=== PATIENT | female | born 1960 | race Caucasian/White ===

== ENCOUNTER 2017-05-10 17:56 | Observation (INO) | payer MEDICAID ==
[~2017-05-10] VITALS: Ht 170.2 cm; Wt 57.0 kg
[~2017-05-10 17:56] MED LIST: BUPR100CR PO; CLON1TAB PO; DICY1TAB26 PO; EFFE75CA PO; FLUT1SPR9 EACH NARE; GABA300C3 PO; LOMO PO; PRED20 PO; QUET50TA PO; VENTAER INH; ZITH250T PO
[2017-05-10 18:07] VITALS: BP 143/64; PULSE 78; RESP 28; TEMP 97.3; O2SAT 98
[2017-05-10 18:10] VITALS: BP 143/64; PULSE 84; RESP 29; O2SAT 98
--- NOTE | 2017-05-10 18:17 | PD ---
Physical Exam Date Seen by Provider: May 10, 2017 Narrative This patient presents with diffuse body movement following an apparent seizure which occurred an hour ago. On exam, the patient is awake and alert but moving her hands constantly. Data Data Last Documented VS Vital Signs Date Time Temp Pulse Resp B/P (MAP) Pulse Ox O2 Delivery O2 Flow Rate FiO2 05/10/17 18:10 84 29 143/64 (90) 98 Room Air 05/10/17 18:07 97.3 MDM Supervised Visit with ZORAIDA: Yes Narrative Course I, Dr. Castelan, have reviewed the advance practice practitioner's documentation and am in agreement, met with the patient face to face, made the diagnosis, and the medical decision making was done by me. *My assessment and Findings: Patient is being seen for possible new onset seizure. She has diffuse, continuous movement of her arms and legs. Please see Talia Kebede's note for final diagnosis and disposition. Lashell Castelan MD May 10, 2017 18:17
--- NOTE | 2017-05-10 18:21 | PD ---
HPI Chief Complaint: Neuro Symptoms/ Deficits Time Seen by Provider: 18:07 Travel History International Travel<30 days: No Contact w/Intl Traveler<30days: No Traveled to known affect area: No History of Present Illness HPI 56-year-old white female here with who gives most of the history. Pt was able to tell me that she and her were having a right before the seizure started. He says that she had a grand mal seizure that lasted about 3 minutes and did not fall or have a postictal period. After the seizure states that she was unable to move her face, had slurred speech, and upper extremities were moving continuously. He denies a history of alcohol abuse and only drinks one alcoholic drink per week. She does smoke about a pack per day. There are no prior episodes and states that she has diabetes but no other medical history. He cannot tell me which medication she takes for diabetes. PFSH Past Medical History Diminished Hearing: No Psychiatric: Yes ?: Not LMP: MENOPAUSAL Menopausal: Yes Tubal Ligation: Yes Social History Alcohol Use: No Tobacco Use: Yes (1 PACK DAY) Substance Use: No Allergies-Medications (Allergen,Severity, Reaction): Coded Allergies: nitrofurantoin (Verified Allergy, Mild, SWELLS, 05/10/17) buspirone (Verified Allergy, Unknown, 05/10/17) codeine (Verified Adverse Reaction, Mild, VOMIT, 05/10/17) Reported Meds & Prescriptions Reported Meds & Active Scripts Active Active Prescriptions or Reported Medications Unobtainable Review of Systems Except as stated in HPI: all other systems reviewed are Neg Physical Exam Exam Limitations: Clinical Condition Narrative 36-year-old thin white female here with who gives most of the history GENERAL: Thin, A&O 3, stutters with speech, rhythmic bilateral hand motions that increases with intentional movement, lower extremities demonstrate bilateral rhythmic motion with intentional movement. SKIN: Focused skin assessment warm/dry. HEAD: Atraumatic. Normocephalic. EYES: Pupils equal and round. No scleral icterus. No injection or drainage. ENT: No nasal bleeding or discharge. Mucous membranes pink and moist. NECK: Trachea midline. No JVD. CARDIOVASCULAR: Regular rate and rhythm. No murmur appreciated. RESPIRATORY: No accessory muscle use. Clear to auscultation. Breath sounds equal bilaterally. GASTROINTESTINAL: Abdomen soft, non-tender, nondistended. Hepatic and splenic margins not palpable. MUSCULOSKELETAL: No obvious deformities. No clubbing. No cyanosis. No edema. NEUROLOGICAL: Awake and alert. No obvious cranial nerve deficits. Speech is stuttered. Data Data Last Documented VS Vital Signs Date Time Temp Pulse Resp B/P (MAP) Pulse Ox O2 Delivery O2 Flow Rate FiO2 05/10/17 19:19 64 17 Room Air 05/10/17 18:35 128/60 (82) 94 05/10/17 18:[address] Brain W/O Iv Contrast(Rout) (05/10/17 18:20) Complete Blood Count With Diff (05/10/17 18:21) Alcohol (Ethanol) (05/10/17 18:21) Drug Screen, Random Urine (05/10/17 18:21) Electrocardiogram (05/10/17 ) Blood Glucose (05/10/17 18:21) Ecg Monitoring (05/10/17 18:21) Iv Access Insert/Monitor (05/10/17 18:21) Oximetry (05/10/17 18:21) Comprehensive Metabolic Panel (05/10/17 18:21) Sodium Chloride 0.9% Flush (Ns Flush) (05/10/17 18:30) Lorazepam Inj (Ativan Inj) (05/10/17 18:30) Urinalysis - C+S If Indicated (05/10/17 18:21) Consult Neurology (05/10/17 ) Admit Order (Ed Use Only) (05/10/17 20:46) Labs Laboratory Tests Test 05/10/17 18:30 White Blood Count 6.7 TH/MM3 Red Blood Count 4.52 MIL/MM3 Hemoglobin 13.7 GM/DL Hematocrit 40.4 % Mean Corpuscular Volume 89.4 FL Mean Corpuscular Hemoglobin 30.4 PG Mean Corpuscular Hemoglobin Concent 34.0 % Red Cell Distribution Width 12.9 % Platelet Count 198 TH/MM3 Mean Platelet Volume 8.2 FL Neutrophils (%) (Auto) 60.9 % Lymphocytes (%) (Auto) 28.2 % Monocytes (%) (Auto) 7.9 % Eosinophils (%) (Auto) 2.1 % Basophils (%) (Auto) 0.9 % Neutrophils # (Auto) 4.1 TH/MM3 Lymphocytes # (Auto) 1.9 TH/MM3 Monocytes # (Auto) 0.5 TH/MM3 Eosinophils # (Auto) 0.1 TH/MM3 Basophils # (Auto) 0.1 TH/MM3 CBC Comment DIFF FINAL Differential Comment Urine Color LIGHT-YELLOW Urine Turbidity CLEAR Urine pH 6.5 Urine Specific [place] 1.008 Urine Protein NEG mg/dL Urine Glucose (UA) NEG mg/dL Urine Ketones NEG mg/dL Urine Occult Blood NEG Urine Nitrite NEG Urine Bilirubin NEG Urine Urobilinogen LESS THAN 2.0 MG/DL Urine Leukocyte Esterase NEG Urine RBC 1 /hpf Urine WBC LESS THAN 1 /hpf Urine Squamous Epithelial Cells 1 /hpf Urine Bacteria RARE /hpf Microscopic Urinalysis Comment CULT NOT INDICATED Blood Urea Nitrogen 12 MG/DL Creatinine 0.94 MG/DL Random Glucose 107 MG/DL Total Protein 7.7 GM/DL Albumin 4.0 GM/DL Calcium Level 9.1 MG/DL Alkaline Phosphatase 80 U/L Aspartate Amino Transf (AST/SGOT) 15 U/L Alanine Aminotransferase (ALT/SGPT) 12 U/L Total Bilirubin 0.2 MG/DL Sodium Level 138 MEQ/L Potassium Level 3.9 MEQ/L Chloride Level 106 MEQ/L Carbon Dioxide Level 26.0 MEQ/L Anion Gap 6 MEQ/L Estimat Glomerular Filtration Rate 62 ML/MIN Urine Opiates Screen NEG Urine Barbiturates Screen NEG Urine Amphetamines Screen NEG Urine Benzodiazepines Screen NEG Urine Cocaine Screen NEG Urine Cannabinoids Screen NEG Ethyl Alcohol Level LESS THAN 3 MG/DL MDM Medical Decision Making Medical Screen Exam Complete: Yes Emergency Medical Condition: Yes Differential Diagnosis Idiopathic seizure versus pseudoseizure versus hypoglycemia versus CVA Narrative Course 56-year-old white female here with who gives most of the history. He says that she had a grand mal seizure that lasted about 3 minutes and did not fall or have a postictal period. Pt was able to tell me that she and her were having a verbal fight right before the seizure. After the seizure states that she was unable to move her face and had slurred speech. Upper extremities had a continuous rhythmic movement, worse with intentional movement. He did not notice a one-sided drooping of the face or one-sided weakness. She denies a history of alcohol abuse or illicit drug use and only drinks one alcoholic drink per week. She does smoke about a pack per day. There are no prior episodes and states that she has diabetes but no other medical history. He cannot tell me which medication she takes for diabetes. She apparently improved spontaneously and the tremors stopped. She was able to sit up and talk normally prior to discharge. After reevaluating the patient, she states that she did not bite her tongue, although her dentition is rather poor, nor involuntarily urinate. She does not remember having the seizure. She denies being able to hear or see anything during the seizure. She states that she has more stress in her life because of family issues and thinks maybe that is the cause. Labs are stable and UDS was negative. CT Head and EKG negative for acute process. I spoke with Dr. Hicks and she suggested an overnight observation and consult with neurology. I discussed this with the patient and she understood and agreed. It is imperative that she not drive until cleared by a neurologist. Physician Communication Physician Communication Dr. Hicks suggested pt be admitted for observation and neuro consult tomorrow. Diagnosis Primary Impression: Observed seizure-like activity Admitting Information Admitting Physician Requests: Observation Additional Instructions: Follow-up with your primary care physician within 2 days. Follow-up with neurologist Do not drive until cleared by neurology. Scripts Unable to Obtain Active Prescriptions or Reported Meds Condition: Stable Talia Kebede May 10, 2017 18:21
[2017-05-10] MEDS ORDERED: SODIUM CHLORIDE 0.9% FLUSH 10 ML FLUSH IVF PRN (18:30)
[2017-05-10] MEDS ORDERED: LORazepam 2 MG/ML VIAL IM ONE (18:30)
[2017-05-10 18:35] VITALS: BP 128/60; PULSE 68; PULSE 72; RESP 15; RESP 16; TEMP 97.3; O2SAT 94; O2SAT 98
--- NOTE | 2017-05-10 18:35 | RADRPT ---
EXAM DATE/TIME: 05/10/2017 18:22 [facility] COMPARISON: Report only CT BRAIN W/O CONTRAST, June 29, 2010, 12:00. INDICATIONS : Post seizure with slurred talking. RADIATION DOSE: 30.96 CTDIvol (mGy) MEDICAL HISTORY : Seizures. SURGICAL HISTORY : Tubal ligation. ENCOUNTER: Initial ACUITY: 1 day PAIN SCALE: 3/10 LOCATION: Bilateral cranial TECHNIQUE: Multiple contiguous axial images were obtained of the head. Using automated exposure control and adj ustment of the mA and/or kV according to patient size, radiation dose was kept as low as reasonably a chievable to obtain optimal diagnostic quality images. DICOM format image data is available electro nically for review and comparison. FINDINGS: CEREBRUM: The ventricles are normal for age. No evidence of midline shift, mass lesion, hemorrhage or acute in farction. No extra-axial fluid collections are seen. POSTERIOR FOSSA: The cerebellum and brainstem are intact. The 4th ventricle is midline. The cerebellopontine angle i s unremarkable. EXTRACRANIAL: The visualized portion of the orbits is intact. SKULL: The calvaria is intact. No evidence of skull fracture. CONCLUSION: Negative noncontrast head CT. Barron Lopez MD on May 10, 2017 at 18:33 Board Certified Radiologist. This report was verified electronically.
[2017-05-10 18:50] LABS: AUTOMATED NEUTROPHIL # 4.1 TH/MM3 (1.8-7.7); BASOPHIL # 0.1 TH/MM3 (0-0.2); BASOPHIL % 0.9 % (0.0-2.0); EOSINOPHIL # 0.1 TH/MM3 (0-0.4); EOSINOPHIL % 2.1 % (0.0-4.0); HEMATOCRIT 40.4 % (35.0-46.0); HEMO FLAGS DIFF FINAL; LYMPH % 28.2 % (9.0-44.0); LYMPHOCYTE # 1.9 TH/MM3 (1.0-4.8); MEAN CELL VOLUME 89.4 FL (80.0-100.0); MEAN CORPUSCULAR HEMOGLOBIN 30.4 PG (27.0-34.0); MONO % 7.9 % (0.0-8.0); NEUT % 60.9 % (16.0-70.0); PLATELET COUNT 198 TH/MM3 (150-450); RED BLOOD COUNT 4.52 MIL/MM3 (4.00-5.30); RED CELL DISTRIBUTION WIDTH 12.9 % (11.6-17.2); WHITE BLOOD COUNT 6.7 TH/MM3 (4.0-11.0)
[2017-05-10 19:09] LABS: ALT (GPT) 12 U/L (10-53)
[2017-05-10 19:11] LABS: ALKALINE PHOSPHATASE 80 U/L (45-117); TOTAL BILIRUBIN ADULT 0.2 MG/DL (0.2-1.0)
[2017-05-10 19:19] LABS: ALCOHOL LESS THAN 3 MG/DL (0-5); ANION GAP 6 MEQ/L (5-15); AST (GOT) 15 U/L (15-37); BLOOD UREA NITROGEN 12 MG/DL (7-18); CHLORIDE 106 MEQ/L (98-107); GLOMERULAR FILTRATION RATE 62 ML/MIN (>89); POTASSIUM 3.9 MEQ/L (3.5-5.1); SODIUM (NA) 138 MEQ/L (136-145)
[2017-05-10 19:56] LABS: BACTERIA, URINE RARE /hpf; BLOOD, URINE NEG (NEG); COMMENT (UR) CULT NOT INDICATED; CULTURE IF INDICATED CULT NOT INDICATED; GLUCOSE,URINE NEG (NEG); KETONE, URINE NEG (NEG); NITRITE,URINE NEG (NEG); PH, URINE 6.5 (5.0-8.5); SQUAMOUS EPITHELIAL CELL URINE 1 /hpf (0-5); URINE COLOR LIGHT-YELLOW (YELLW/STRAW)
[2017-05-10] MEDS ORDERED: GADODIAMIDE PF 287 MG/ML 20 ML VIAL (for RAD MRI) IVCONTRAST ONE (20:48)
[2017-05-10] MEDS ORDERED: IOHEXOL 350 MG/ML 10 ML VIAL (for RAD DIAG) IVCONTRAST ONE (20:48)
[2017-05-10 21:00] VITALS: BP 108/57; PULSE 56; RESP 17; O2SAT 97
[2017-05-10] MEDS ORDERED: SODIUM CHLORIDE 0.9% FLUSH 10 ML FLUSH IV FLUSH PRN (21:45)
[2017-05-10] MEDS ORDERED: NALOXONE HCL 0.4 MG/ML AMP IV PUSH PRN (21:45)
[2017-05-10 22:00] VITALS: BP 100/61; PULSE 66; RESP 17; O2SAT 97
[2017-05-10 22:47] VITALS: BP 101/52; PULSE 57; RESP 19; TEMP 97.5; O2SAT 99
[2017-05-11] VITALS (7 sets, daily range): BP systolic 88–93; BP diastolic 53–55; PULSE 54–65; RESP 16–19; TEMP 97.6–98.2; O2SAT 96–100
--- NOTE | 2017-05-11 05:09 | HHI.HP ---
HPI Service [facility] Primary Care Physician Unknown Admission Diagnosis Seizure like activity Diagnoses: Travel History International Travel<30 Days: No Contact w/Intl Traveler <30 Da: No Traveled to Known Affected Are: No History of Present Illness History from patient's, ER PA communication, and review of medical records. Patient reported to me that she does not remember the events at all. She states that she was walking to her bedroom and she somehow sat down and the last thing she remembers was that she might have been shaking her upper extremities. She states that her daughters were by her side. When she woke up, she was on the floor. She stated her daughter's boyfriend was present and she immediately remembered him. She denies confusion. Denies hitting her head. She states she was told she had a seizure. She denies having had any prior episodes of seizures. She denies any premonitory symptoms such as chest pain/palpitations/shortness of breath/dizziness/focal weakness. Patient also denies any recent fever/nausea/vomiting/urinary burning or pain on urination in the past few weeks. Denies any hematemesis/hematochezia/melena/hematochezia. She reports that she did have 1 or 2 times episode of diarrhea yesterday. Also reports of severe headaches for the past few days. Again, no syncopal episodes. Patient is a diabetic. She states she usually measures her blood sugars but she did not measure it yesterday. She reports her daughter most of measures her blood sugar after the event and she remembers the daughter saying blood sugar of 113. She is on as a Rx IgA for diabetes. She is newly diagnosed with diabetes about 6 months ago. Never had TKAs. Patient also reports of history of weight loss. She is unsure how much she lost weight. She has lost quite a bit she stated age. She reports of loss of appetite for several months. Denies any odynophagia or dysphagia. Her last mammogram was just last month. She has not had Pap smears for few years. As per ER report, patient was brought in by ambulance. was at the bedside to ER. The was telling ER that patient had seizure which is grand mal and lasted about 3 minutes and did not follow down and did not have any postictal episodes. After that, he stated patient was unable to move her face and had slurred speech and upper extremities were constantly moving. Denies any history of alcohol abuse or drug abuse. Review of Systems Except as stated in HPI: all other systems reviewed are Neg Past Family Social History Past Medical History diabetes copd Past Surgical History right ankle sx Reported Medications farxiga once a day Allergies: Coded Allergies: nitrofurantoin (Verified Allergy, Mild, SWELLS, 05/10/17) buspirone (Verified Allergy, Unknown, 05/10/17) codeine (Verified Adverse Reaction, Mild, VOMIT, 05/10/17) Family History mom- htn Social History Smokes a pack a day. Denies any alcohol abuse or drug abuse. Physical Exam Vital Signs Vital Signs Date Time Temp Pulse Resp B/P (MAP) Pulse Ox O2 Delivery O2 Flow Rate FiO2 05/11/17 02:21 98.2 63 18 91/55 (67) 97 05/10/17 22:47 97.5 57 19 101/52 (68) 99 05/10/17 22:27 05/10/17 22:00 66 17 100/61 (74) 97 Room Air 05/10/17 21:00 56 17 108/57 (74) 97 Room Air 05/10/17 19:19 64 17 Room Air 05/10/17 18:35 72 16 128/60 (82) 94 Room Air 05/10/17 18:35 97.3 68 15 128/60 (82) 98 Room Air 05/10/17 18:10 84 29 143/64 (90) 98 Room Air 05/10/17 18:07 97.3 78 28 143/64 (90) 98 Physical Exam GENERAL: This is a lady who looks much older than her age. Thin. Frail. Not in acute distress. SKIN: No rashes, ecchymoses or lesions. Cool and dry. HEAD: Atraumatic. Normocephalic. No temporal or scalp tenderness. EYES:No scleral icterus. No injection or drainage. ENT: Nose without bleeding, purulent drainage or septal hematoma. Airway patent. Multiple absent teeth. Poor dentition. NECK: Trachea midline. No JVD CARDIOVASCULAR: Regular rate and rhythm without murmurs, gallops, or rubs. RESPIRATORY: Clear to auscultation. Breath sounds equal bilaterally. No wheezes , rales, or rhonchi. GASTROINTESTINAL: Abdomen soft, non-tender, nondistended. No guarding. MUSCULOSKELETAL: Extremities without clubbing, cyanosis, or edema. No calf tenderness. NEUROLOGICAL: Awake and alert. Motor and sensory grossly within normal limits. Normal speech. Laboratory Laboratory Tests Test 05/10/17 18:30 White Blood Count 6.7 Red Blood Count 4.52 Hemoglobin 13.7 Hematocrit 40.4 Mean Corpuscular Volume 89.4 Mean Corpuscular Hemoglobin 30.4 Mean Corpuscular Hemoglobin Concent 34.0 Red Cell Distribution Width 12.9 Platelet Count 198 Mean Platelet Volume 8.2 Neutrophils (%) (Auto) 60.9 Lymphocytes (%) (Auto) 28.2 Monocytes (%) (Auto) 7.9 Eosinophils (%) (Auto) 2.1 Basophils (%) (Auto) 0.9 Neutrophils # (Auto) 4.1 Lymphocytes # (Auto) 1.9 Monocytes # (Auto) 0.5 Eosinophils # (Auto) 0.1 Basophils # (Auto) 0.1 CBC Comment DIFF FINAL Differential Comment Urine Color LIGHT-YELLOW Urine Turbidity CLEAR Urine pH 6.5 Urine Specific [place] 1.008 Urine Protein NEG Urine Glucose (UA) NEG Urine Ketones NEG Urine Occult Blood NEG Urine Nitrite NEG Urine Bilirubin NEG Urine Urobilinogen LESS THAN 2.0 Urine Leukocyte Esterase NEG Urine RBC 1 Urine WBC LESS THAN 1 Urine Squamous Epithelial Cells 1 Urine Bacteria RARE Microscopic Urinalysis Comment CULT NOT INDICATED Blood Urea Nitrogen 12 Creatinine 0.94 Random Glucose 107 Total Protein 7.7 Albumin 4.0 Calcium Level 9.1 Alkaline Phosphatase 80 Aspartate Amino Transf (AST/SGOT) 15 Alanine Aminotransferase (ALT/SGPT) 12 Total Bilirubin 0.2 Sodium Level 138 Potassium Level 3.9 Chloride Level 106 Carbon Dioxide Level 26.0 Anion Gap 6 Estimat Glomerular Filtration Rate 62 Urine Opiates Screen NEG Urine Barbiturates Screen NEG Urine Amphetamines Screen NEG Urine Benzodiazepines Screen NEG Urine Cocaine Screen NEG Urine Cannabinoids Screen NEG Ethyl Alcohol Level LESS THAN 3 Result Diagram: 05/10/17 18305/10/17 183 Imaging Last [address] 05/10/17 182 Signed Impressions: Service Date/Time: Wednesday, May 10, 2017 18:22 - CONCLUSION: Negative noncontrast head CT. MD Dagmar Gomez VTE Risk Assessment Caprineric VTE Risk Assessment: Mod/High Risk (score >= 2) Caprini Risk Assessment Model Point Value = 1 Point Value = 2 Point Value = 3 Point Value = 5 Age 41-60 Minor surgery BMI > 25 kg/m2 Swollen legs Varicose veins or History of unexplained or recurrent spontaneous Oral contraceptives or hormone replacement Sepsis (< 1 month) Serious lung disease, including pneumonia (< 1 month) Abnormal pulmonary function Acute myocardial infarction Congestive heart failure (< 1 month) History of inflammatory bowel disease Medical patient at bed rest Age 61-74 Arthroscopic surgery Major open surgery (> 45 min) Laparoscopic surgery (> 45 min) Malignancy Confined to bed (> 72 hours) Immobilizing plaster cast Central venous access Age >= 75 History of VTE Family history of VTE Factor V Leiden Prothrombin [id number] Lupus anticoagulant Anticardiolipin antibodies Elevated serum homocysteine Heparin-induced thrombocytopenia Other congenital or acquired thrombophilia Stroke (< 1 month) Elective arthroplasty Hip, pelvis, or leg fracture Acute spinal cord injury (< 1 month) Prophylaxis Regimen Total Risk Factor Score Risk Level Prophylaxis Regimen 0-1 Low Early ambulation 2 Moderate Order ONE of the following: *Sequential Compression Device (SCD) *Heparin 5000 units SQ BID 3-4 Higher Order ONE of the following medications: *Heparin 5000 units SQ TID *Enoxaparin/Lovenox 40 mg SQ daily (WT < 150 kg, CrCl > 30 mL/min) *Enoxaparin/Lovenox 30 mg SQ daily (WT < 150 kg, CrCl > 10-29 mL/min) *Enoxaparin/Lovenox 30 mg SQ BID (WT < 150 kg, CrCl > 30 mL/min) AND/OR *Sequential Compression Device (SCD) 5 or more Highest Order ONE of the following medications: *Heparin 5000 units SQ TID (Preferred with Epidurals) *Enoxaparin/Lovenox 40 mg SQ daily (WT < 150 kg, CrCl > 30 mL/min) *Enoxaparin/Lovenox 30 mg SQ daily (WT < 150 kg, CrCl > 10-29 mL/min) *Enoxaparin/Lovenox 30 mg SQ BID (WT < 150 kg, CrCl > 30 mL/min) AND *Sequential Compression Device (SCD) Assessment and Plan Assessment and Plan Impression: New onset seizures Headaches History of diabetes History of COPD Plan: Seizure precautions. EEG. Abdomen 1 mg when necessary for seizures. Social, and there is no evidence of medications or alcohol withdrawal will causing seizures. Also there is no evidence of hypoglycemia induced. Therefore would obtain brain MRI to further evaluate. Monitor fingersticks and cover with sliding scale coverage. Hold oral hypoglycemics. DVT prophylaxis with Lovenox. Discussed Condition With patient, ER PA, nursing staff Ilsa Mo MD May 11, 2017 05:09
[2017-05-11] MEDS ORDERED: LORazepam 2 MG/ML VIAL IV PUSH PRN (05:15)
[2017-05-11] MEDS ORDERED: GLUCAGON 1 MG/ML VIAL OTHER PRN (05:15)
[2017-05-11] MEDS ORDERED: DEXTROSE 50% IN WATER 50 ML VIAL(D50) IV PUSH PRN (05:15)
[2017-05-11 07:39] LABS: AUTOMATED NEUTROPHIL # 3.5 TH/MM3 (1.8-7.7); BASOPHIL # 0.1 TH/MM3 (0-0.2); BASOPHIL % 0.9 % (0.0-2.0); EOSINOPHIL # 0.2 TH/MM3 (0-0.4); EOSINOPHIL % 3.4 % (0.0-4.0); HEMATOCRIT 38.4 % (35.0-46.0); HEMO FLAGS DIFF FINAL; MEAN CELL VOLUME 88.4 FL (80.0-100.0); MEAN CORPUSCULAR HEMOGLOBIN 30.2 PG (27.0-34.0); MEAN CORPUSCULAR HGB CONC 34.1 % (32.0-36.0); NEUT % 55.7 % (16.0-70.0); PLATELET COUNT 194 TH/MM3 (150-450); RED BLOOD COUNT 4.35 MIL/MM3 (4.00-5.30); RED CELL DISTRIBUTION WIDTH 12.8 % (11.6-17.2); WHITE BLOOD COUNT 6.4 TH/MM3 (4.0-11.0)
--- NOTE | 2017-05-11 07:45 | EKG ---
Date Performed: 05/10/2017 Time Performed: 18:42:56 PTAGE: 56 years EKG: Sinus rhythm POSSIBLE LEFT ATRIAL ENLARGEMENT POSSIBLE RIGHT VENTRICULAR CONDUCTION DELAY BORDERLINE ECG Since PREVIOUS TRACING , no significant change noted PREVIOUS TRACIN05/10/2017 18.42 DOCTOR: Elsa Easley Interpretating Date/Time 05/15/2017 07:44:12
[2017-05-11 07:54] LABS: BICARBONATE 26.7 MEQ/L (21.0-32.0)
[2017-05-11] MEDS ORDERED: ENOXAPARIN SODIUM 40 MG/0.4 ML SYRINGE SQ SCH (09:00)
[2017-05-11] MEDS: INSULIN ASPART SUPPLEMENTAL SCALE SQ SCH ×4 (09:47→20:50)
[2017-05-11] MEDS: SODIUM CHLORIDE 0.9% FLUSH 10 ML FLUSH IV FLUSH SCH ×2 (09:47→21:00)
[2017-05-11] MEDS ORDERED: GADODIAMIDE PF 287 MG/ML 5 ML VIAL (for RAD MRI) IVCONTRAST ONE (10:10)
--- NOTE | 2017-05-11 10:57 | RADRPT ---
EXAM DATE/TIME: 05/11/2017 09:58 [facility] COMPARISON: No previous studies available for comparison. INDICATIONS : Cephalgia. New onset seizures. CONTRAST: 11 cc Omniscan (gadodiamide) IV MEDICAL HISTORY : Diabetes mellitus type 2. SURGICAL HISTORY : Tubal ligation. ORIF Rt ankle ENCOUNTER: Subsequent ACUITY: 2 day PAIN SCORE: 0/10 LOCATION: cranial TECHNIQUE: Multiplanar, multisequence MRI of the brain was performed both prior to and following the administrat ion of paramagnetic contrast. FINDINGS: CEREBRUM: The ventricles are normal for age. No evidence of midline shift, mass lesion, hemorrhage or acute in farction. No extraaxial fluid collections are seen. The pituitary gland and suprasellar cistern are normal in configuration. WHITE MATTER: No significant signal abnormalities are seen in the white matter. POSTERIOR FOSSA: The cerebellum and brainstem are intact. The 4th ventricle is midline. The cerebellopontine angle is unremarkable. The cerebellar tonsils are normal in position. The exam does demonstrate filling defe ct in the right transverse sinus suggesting thrombus. Contrast-enhanced MRV would be of benefit for f urther assessment. DIFFUSION IMAGING: No focal areas of restricted diffusion are seen. No evidence of acute infarction. EXTRACRANIAL: The visualized portions of the orbits and paranasal sinuses are unremarkable. POST-CONTRAST: No abnormal areas of parenchymal or dural enhancement. No evidence of blood-brain barrier breakdown. CONCLUSION: 1. There is a filling defect on the postcontrast T1-weighted imaging in the right cavernous sinus. Pa rtial sinus thrombosis is not excluded. Contrast enhanced MRV is warranted for further assessment. 2. The brain parenchyma is normal in appearance. No mass lesion is identified. Eron Marshall MD on May 11, 2017 at 10:42 Board Certified Radiologist. This report was verified electronically.
--- NOTE | 2017-05-11 12:48 | PD.CONS ---
HPI History of Present Illness This is a 56 year old year old that was brought to the emergency room for new onset seizure. Neurology has been consulted for further workup. GI has been consulted for decreased appetite, weight loss, and dysphagia. The patient reports that she has lost a significant amount of weight and has had decreased appetite for a few weeks, but cannot quantify the amount. She has had some occasional mild nausea without vomiting. She is not having any abdominal pain. Occasionally, she has heartburn, but not on a regular basis. She reports that sometimes she has time drinking water, but denies it getting caught, going down the wrong pipe, or coughing with this. She denies having any food get caught in her esophagus. She denies any abdominal pain, constipation, diarrhea , melena, or hematochezia. She has never had an EGD or colonoscopy. She is unaware of any family hx of esophageal, gastric, or colorectal cancer. She occasionally takes ASA, but usually takes Tylenol for various aches and pains. (Mehnaz Amador) PFSH Past Medical History DM COPD Past Surgical History Right ankle sx (Mehnaz Amador) Coded Allergies: nitrofurantoin (Verified Allergy, Mild, SWELLS, 05/10/17) buspirone (Verified Allergy, Unknown, 05/10/17) codeine (Verified Adverse Reaction, Mild, VOMIT, 05/10/17) Medications Allergies Coded Allergies Type Severity Reaction Last Updated Verified nitrofurantoin Allergy Mild SWELLS 05/10/17 Yes buspirone Allergy Unknown 05/10/17 Yes codeine Adverse Reaction Mild VOMIT 05/10/17 Yes Active Scripts Medications Dose Route/Sig Max Daily Dose Days Date Category Active Prescriptions or Reported Medications Unobtainable Rx Family History Mother had htn Social History Smokes a pack a day. Denies any alcohol abuse or drug abuse. (Mehnaz Amador) Review of Systems Constitutional: COMPLAINS OF: Weight loss, Change in appetite, DENIES: Fatigue , Fever, Chills Respiratory: COMPLAINS OF: Wheezing, Shortness of breath, DENIES: Cough Cardiovascular: COMPLAINS OF: Chest pain Gastrointestinal: COMPLAINS OF: Nausea, Anorexia, Heartburn, DENIES: Abdominal pain, Black stools, Bloody stools, Constipation, Diarrhea, Vomiting, Difficulty Swallowing, Swelling of Abdomen, Hematemesis Musculoskeletal: DENIES: Joint pain Hematologic/lymphatic: DENIES: Bruising Neurologic: DENIES: Headache Psychiatric: DENIES: Confusion (AmadorMehnaz [place] KEYANA) GI Exam Vitals I&O Vital Signs Date Time Temp Pulse Resp B/P (MAP) Pulse Ox O2 Delivery O2 Flow Rate FiO2 05/11/17 08:00 98.1 57 16 93/55 (68) 96 05/11/17 05:59 54 05/11/17 02:21 98.2 63 18 91/55 (67) 97 05/10/17 22:47 97.5 57 19 101/52 (68) 99 05/10/17 22:27 05/10/17 22:00 66 17 100/61 (74) 97 Room Air 05/10/17 21:00 56 17 108/57 (74) 97 Room Air 05/10/17 19:19 64 17 Room Air 05/10/17 18:35 72 16 128/60 (82) 94 Room Air 05/10/17 18:35 97.3 68 15 128/60 (82) 98 Room Air 05/10/17 18:10 84 29 143/64 (90) 98 Room Air 05/10/17 18:07 97.3 78 28 143/64 (90) 98 Imaging Last Impressions Brain MRI 05/11/17 0000 Signed Impressions: Service Date/Time: April 09:58 - CONCLUSION: 1. There is a filling defect on the postcontrast T1-weighted imaging in the right cavernous sinus. Partial sinus thrombosis is not excluded. Contrast enhanced MRV is warranted for further assessment. 2. The brain parenchyma is normal in appearance. No mass lesion is identified. Eron Marshall MD Head CT 05/10/17 1820 Signed Impressions: Service Date/Time: Wednesday, May 10, 2017 18:22 - CONCLUSION: Negative noncontrast head CT. Barron Lopez MD Laboratory Test 05/10/17 18:30 05/11/17 06:50 White Blood Count 6.7 TH/MM3 6.4 TH/MM3 Red Blood Count 4.52 MIL/MM3 4.35 MIL/MM3 Hemoglobin 13.7 GM/DL 13.1 GM/DL Hematocrit 40.4 % 38.4 % Mean Corpuscular Volume 89.4 FL 88.4 FL Mean Corpuscular Hemoglobin 30.4 PG 30.2 PG Mean Corpuscular Hemoglobin Concent 34.0 % 34.1 % Red Cell Distribution Width 12.9 % 12.8 % Platelet Count 198 TH/MM3 194 TH/MM3 Mean Platelet Volume 8.2 FL 7.9 FL Neutrophils (%) (Auto) 60.9 % 55.7 % Lymphocytes (%) (Auto) 28.2 % 32.0 % Monocytes (%) (Auto) 7.9 % 8.0 % Eosinophils (%) (Auto) 2.1 % 3.4 % Basophils (%) (Auto) 0.9 % 0.9 % Neutrophils # (Auto) 4.1 TH/MM3 3.5 TH/MM3 Lymphocytes # (Auto) 1.9 TH/MM3 2.0 TH/MM3 Monocytes # (Auto) 0.5 TH/MM3 0.5 TH/MM3 Eosinophils # (Auto) 0.1 TH/MM3 0.2 TH/MM3 Basophils # (Auto) 0.1 TH/MM3 0.1 TH/MM3 CBC Comment DIFF FINAL DIFF FINAL Differential Comment Urine Color LIGHT-YELLOW Urine Turbidity CLEAR Urine pH 6.5 Urine Specific [place] 1.008 Urine Protein NEG mg/dL Urine Glucose (UA) NEG mg/dL Urine Ketones NEG mg/dL Urine Occult Blood NEG Urine Nitrite NEG Urine Bilirubin NEG Urine Urobilinogen LESS THAN 2.0 MG/DL Urine Leukocyte Esterase NEG Urine RBC 1 /hpf Urine WBC LESS THAN 1 /hpf Urine Squamous Epithelial Cells 1 /hpf Urine Bacteria RARE /hpf Microscopic Urinalysis Comment CULT NOT INDICATED Blood Urea Nitrogen 12 MG/DL 11 MG/DL Creatinine 0.94 MG/DL 0.86 MG/DL Random Glucose 107 MG/DL 95 MG/DL Total Protein 7.7 GM/DL Albumin 4.0 GM/DL Calcium Level 9.1 MG/DL 8.9 MG/DL Alkaline Phosphatase 80 U/L Aspartate Amino Transf (AST/SGOT) 15 U/L Alanine Aminotransferase (ALT/SGPT) 12 U/L Total Bilirubin 0.2 MG/DL Sodium Level 138 MEQ/L 141 MEQ/L Potassium Level 3.9 MEQ/L 4.0 MEQ/L Chloride Level 106 MEQ/L 108 MEQ/L Carbon Dioxide Level 26.0 MEQ/L 26.7 MEQ/L Anion Gap 6 MEQ/L 6 MEQ/L Estimat Glomerular Filtration Rate 62 ML/MIN 69 ML/MIN Urine Opiates Screen NEG Urine Barbiturates Screen NEG Urine Amphetamines Screen NEG Urine Benzodiazepines Screen NEG Urine Cocaine Screen NEG Urine Cannabinoids Screen NEG Ethyl Alcohol Level LESS THAN 3 MG/DL Physical Examination GEN: Cachetic appearing HEENT: Normocephalic; atraumatic; no jaundice. CHEST: CTA CARDIAC: RRR ABDOMEN: Soft, nondistended, nontender; no hepatosplenomegaly; bowel sounds are present in all four quadrants. EXTREMITIES: No clubbing, cyanosis, or edema. SKIN: Normal; no rash; no jaundice. 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 (Mehnaz Amador) Assessment and Plan Plan ASSESSMENT: - Decreased appetite, weight loss. Pt reports over the past few months, unable to quantify. Occasional nausea without vomiting. No pain. Occasional heartburn. She reports that sometimes she has time drinking water , but denies it getting caught, going down the wrong pipe, or coughing with this. She denies having any food get caught in her esophagus. Never had an egd/colonoscopy. - New onset seizure. Neurology consulted. - COPD, DM per attending. PLAN: - Plan for egd/colonoscopy in am - Obtain consent - Clear liquids - NPO after MN - Golytely prep - Monitor labs - Supportive care - Further recommendations to follow based on results of above - Pt seen and examined by Dr. Austin and myself and this note is written on his behalf (Mehnaz Amador) Plan Patient was seen and examined, agree with above Notes, significant weight loss and anemia, land for: EGD tomorrow (Leopoldo Gallegos MD) Mehnaz Amador May 11, 2017 12:48 Leopoldo Gallegos MD May 11, 2017 16:00
--- NOTE | 2017-05-11 15:25 | HHI.PR ---
Subjective Remarks Follow up for seizure. Patient does not recall much about the events last night when she had a seizure. She has been having weight loss and dysphagia recently. She was seen by neurology and gastroenterology today. She complains of chronic mid back pain, takes Tylenol at home. She denies any extremity numbness, tingling, weakness. She denies any bowel or bladder incontinence. The patient is diabetic and takes Farxyga. Objective Vitals Vital Signs Date Time Temp Pulse Resp B/P (MAP) Pulse Ox O2 Delivery O2 Flow Rate FiO2 05/11/17 08:00 98.1 57 16 93/55 (68) 96 05/11/17 05:59 54 05/11/17 02:21 98.2 63 18 91/55 (67) 97 05/10/17 22:47 97.5 57 19 101/52 (68) 99 05/10/17 22:27 05/10/17 22:00 66 17 100/61 (74) 97 Room Air 05/10/17 21:00 56 17 108/57 (74) 97 Room Air 05/10/17 19:19 64 17 Room Air 05/10/17 18:35 72 16 128/60 (82) 94 Room Air 05/10/17 18:35 97.3 68 15 128/60 (82) 98 Room Air 05/10/17 18:10 84 29 143/64 (90) 98 Room Air 05/10/17 18:07 97.3 78 28 143/64 (90) 98 Result Diagram: 05/11/17 0650 05/11/17 0650 Imaging Last Impressions Brain MRI 05/11/17 0000 Signed Impressions: Service Date/Time: April 09:58 - CONCLUSION: 1. There is a filling defect on the postcontrast T1-weighted imaging in the right cavernous sinus. Partial sinus thrombosis is not excluded. Contrast enhanced MRV is warranted for further assessment. 2. The brain parenchyma is normal in appearance. No mass lesion is identified. Eron Marshall MD Head CT 05/10/17 1820 Signed Impressions: Service Date/Time: Wednesday, May 10, 2017 18:22 - CONCLUSION: Negative noncontrast head CT. Barron Lopez MD Objective Remarks GENERAL: Well-developed fair-nourished thin patient. In no acute distress. SKIN: Warm and dry. No lesions noted. HEENT: Normocephalic. Pupils equal and round. Mucous membranes pink and moist. CARDIOVASCULAR: Regular rate and rhythm. No murmur appreciated. RESPIRATORY: No accessory muscle use. Clear to auscultation. Breath sounds equal bilaterally. GASTROINTESTINAL: Abdomen soft, non-tender, nondistended. Bowel sounds x4. MUSCULOSKELETAL: No obvious deformities. No clubbing or cyanosis. No edema. NEUROLOGICAL: Awake and alert. No focal neurological deficits. Moves upper and lower extremities spontaneously. Normal speech. PSYCHIATRIC: Appropriate mood and affect; insight and judgment normal. A/P Assessment and Plan 56-year-old female with past medical history of diabetes mellitus who presented after a witnessed seizure Seizure: Reviewed: Brain MRI shows filling defect in the right cavernous sinus, partial sinus thrombosis if not excluded with MRV recommended, otherwise brain parenchyma is normal. Blood glucoses are borderline low at 87. Drug screen and EtOH level negative. -EEG completed, results pending -Neurology consulted, ordered brain MRV and IV Keppra -Seizure precautions -IV Ativan as needed Dysphasia/weight loss: -GI consulted, planning on EGD and colonoscopy Diabetes mellitus: With borderline hypoglycemia. -Check hemoglobin A1c -Hold home oral hypoglycemics -Start IVF with D5 -Monitor Accu-Cheks and cover with SSI if needed DVT prophylaxis: Lovenox Discharge Planning Follow-up neurology and gastroenterology recommendations. Tobias Philip May 11, 2017 15:25
[2017-05-11] MEDS ORDERED: ACETAMINOPHEN 325 MG TAB PO PRN (15:30)
[2017-05-11] MEDS: levETIRAcetam INJ 500 MG in SODIUM CHLORIDE 0.9% INJ 100 ML IV SCH ×2 (15:33→21:31)
[2017-05-11] MEDS ORDERED: DAPA1TAB PO (15:40)
[2017-05-11] MEDS ORDERED: PEG (High)/E-LYTE SOLN 4000 ML BTL PO ONE (16:00)
[2017-05-11] MEDS ORDERED: D5-1/2 NS + KCL 20 MEQ INJ 1,000 ML IV SCH (16:46)
[2017-05-11 16:59] LABS: HEMOGLOBIN A1a 0.9 %; HEMOGLOBIN A1b 0.8 %; HEMOGLOBIN Ao 86.2 %; HEMOGLOBIN F 0.8 %; HEMOGLOBIN LA1C 1.9 %; HEMOGLOBIN P3 3.4 %
--- NOTE | 2017-05-11 21:05 | RADRPT ---
EXAM DATE/TIME: 05/11/2017 18:58 COMPARISON: MRI BRAIN W & W/O CONTRAST, May 11, 2017, 9:58. INDICATIONS : Thrombosis. Headaches and seizures. CONTRAST: 20 cc Omniscan (gadodiamide) IV MEDICAL HISTORY : Diabetes mellitus type 2. SURGICAL HISTORY : Tubal ligation. Right ankle. ENCOUNTER: Subsequent ACUITY: 1 day PAIN SCORE: 6/10 LOCATION: Head. FINDINGS: Draining veins and dural sinuses of the brain are patent. No thrombosis seen in the right sagittal si nus, most likely artifactual on the comparison MRI. CONCLUSION: Normal MRV of the brain. Barron Lopez MD on May 11, 2017 at 21:03 Board Certified Radiologist. This report was verified electronically.
--- NOTE | 2017-05-11 21:18 | MG ---
cc: OMER TRACEY Lab No: [id number] Date: 05/11/17 Age: 56 Sex: F Race: Grand mal seizures lasting 3 minutes. Insulin. A 6 Hz symmetric 60 microvolt posterior rhythm is seen and then a 7 Hz posterior rhythm is seen synchronous and symmetric. The patient appears to fall asleep and is in stage II sleep at the beginning of the recording. Photic stimulation was performed without significant posterior driving. Hyperventilation was not performed. IMPRESSION A normal stage II sleep EEG. No evidence for a focal or diffuse abnormality. MD SRIDHAR Wheeler/MICHELE /8:58 PM /9:12 PM
[2017-05-12] VITALS (7 sets, daily range): BP systolic 84–98; BP diastolic 49–56; PULSE 48–64; RESP 15–17; TEMP 96–97.9; O2SAT 97–100
--- NOTE | 2017-05-12 05:40 | MB ---
cc: YESI SMYTH DATE OF CONSULTATION 05/11/2017 REASON FOR CONSULTATION Seizure. HISTORY OF PRESENT ILLNESS Ms. Patricia is a 36-year-old female who presented to the [facility] with an episode of what is described as seizure where does not remember the episode but states that her daughters who were with her at home noticed that she was shaking in her upper extremity and then she passed out. Denies any postictal deviation of state, loss of bowel or bladder. She woke up and she was on the floor. Denies history of head trauma, TIA, stroke or febrile seizures or epilepsy or any family history. She has states that her mother had seizure disorder. She headache, lightheadedness, racing heart, perspiration, but for the episode. There is no other seizure, dehydration or recent infection. REVIEW OF SYSTEMS A 12-point review of systems is negative except for that stated in the HPI. PAST MEDICAL HISTORY Diabetes mellitus. COPD. PAST SURGICAL HISTORY Right ankle surgery. MEDICATIONS Farxiga once daily. ALLERGIES NITROFURANTOIN. BUSPIRONE. CODEINE. FAMILY HISTORY Mother with hypertension. SOCIAL HISTORY Smokes one-pack per day. Denies alcohol or illicit drug abuse. PHYSICAL EXAMINATION GENERAL: Awake, alert, good historian, anxious. HEENT: Atraumatic, normocephalic. Intact hearing and vision. NECK: No signs of meningeal irritation. No carotid bruit. CARDIOVASCULAR: Regular rate and rhythm. RESPIRATORY: Clear to auscultation. No wheezes. GASTROINTESTINAL: Soft abdomen, nontender. MUSCULOSKELETAL: No clubbing, no cyanosis, no deformity. NEUROLOGICAL: Awake, alert, oriented to time, person and place. Cranial nerves are intact, II-XII. No dysarthria. No dysphasia. Motor examination - 5/5, bilateral symmetrical upper and lower extremities. Sensation is intact bilateral upper and lower to light touch and temperature. Reflexes 2+ bilateral , symmetrical. Plantars are bilaterally downgoing. [id number], heel-to- salgado are intact. PSYCHIATRIC: Intact mood and behavior. No hallucination. LABORATORY DATA WBC 6.4, hemoglobin 13.1, MCV 88.4. Sodium 141, potassium 4, anion gap 26.7, BUN 11, creatinine 0.86. UDS negative. DIAGNOSTIC IMAGING - Head CT scan without contrast, negative for acute intracranial abnormality. - Brain MRI with and without contrast. There was reported a filling defect on the postcontrast T1 weighted imaging on the right cavernous sinus. Partial sinus thrombosis is not excluded. Contrast-enhanced MRV is warranted for further assessment. No mass lesion is identified. Brain parenchyma is normal in appearance. DIAGNOSTIC IMPRESSION 1. New onset seizure. 2. Diabetes mellitus. PLAN 1. Neuro checks q. 4 hours. 2. EEG. 3. MRV with and without contrast. 4. Seizure precautions. 5. No indication for starting seizure medication at this time. 6. DVT prophylaxis. 7. GI prophylaxis. Thank you for asking me to participate in the care of your patient. MD NEY Liz/TC /10:08 PM /5:18 AM HARI
[2017-05-12 07:34] LABS: AUTOMATED NEUTROPHIL # 2.3 TH/MM3 (1.8-7.7); BASOPHIL % 0.9 % (0.0-2.0); EOSINOPHIL # 0.3 TH/MM3 (0-0.4); EOSINOPHIL % 4.9 % (0.0-4.0); HEMATOCRIT 37.7 % (35.0-46.0); HEMO FLAGS DIFF FINAL; LYMPH % 43.6 % (9.0-44.0); LYMPHOCYTE # 2.5 TH/MM3 (1.0-4.8); MEAN CORPUSCULAR HEMOGLOBIN 30.1 PG (27.0-34.0); MEAN CORPUSCULAR HGB CONC 33.8 % (32.0-36.0); MONO % 10.1 % (0.0-8.0); NEUT % 40.5 % (16.0-70.0); PLATELET COUNT 190 TH/MM3 (150-450); RED BLOOD COUNT 4.23 MIL/MM3 (4.00-5.30); RED CELL DISTRIBUTION WIDTH 12.8 % (11.6-17.2); WHITE BLOOD COUNT 5.7 TH/MM3 (4.0-11.0)
[2017-05-12] MEDS: INSULIN ASPART SUPPLEMENTAL SCALE SQ SCH ×3 (07:52→17:00)
[2017-05-12 07:55] LABS: BICARBONATE 31.2 MEQ/L (21.0-32.0); POTASSIUM 4.2 MEQ/L (3.5-5.1)
[2017-05-12] MEDS: levETIRAcetam INJ 500 MG in SODIUM CHLORIDE 0.9% INJ 100 ML IV SCH (08:16)
[2017-05-12] MEDS: SODIUM CHLORIDE 0.9% FLUSH 10 ML FLUSH IV FLUSH SCH (08:16)
[2017-05-12] MEDS ORDERED: SODIUM CHLORID 0.9% 500 ML INJ 500 ML IV ONE (09:00)
--- NOTE | 2017-05-12 09:14 | HHI.PR ---
Review/Management Daily Summary Seizure like episode Patient relates this episode to being in extreme stress with family members Neurologic exam is non focal Neurologic investigations with no acute intracranial abnormality No indication for anti seizure medications Follow up as outpatient when needed Please call for questions Subjective Subjective Comments No acute events reported Denies seizure activity or headache EEG is unremarkable MRV brain is unremarkable with no acute intracranial abnormality Active Medications Current Medications Medications (Trade) Dose Ordered Sig/Violet Route Start Time Stop Time Status Last Admin (NS Flush) 2 ml UNSCH PRN IV FLUSH 05/10/17 21:45 (NS Flush) 2 ml BID IV FLUSH 05/11/17 09:00 05/12/17 08:16 (Narcan Inj) 0.4 mg UNSCH PRN IV PUSH 05/10/17 21:45 (Ativan Inj) 1 mg Q15M PRN IV PUSH 05/11/17 05:15 05/11/17 09:46 (D50w (Vial) Inj) 50 ml UNSCH PRN IV PUSH 05/11/17 05:15 (Glucagon Inj) 1 mg UNSCH PRN OTHER 05/11/17 05:15 (NovoLOG SUPPLEMENTAL SCALE) 1 ACHS SLIDING SCALE SQ 05/11/17 08:00 05/11/17 18:24 (Lovenox Inj) 40 mg Q24H SQ 05/11/17 09:00 Future Hold Levetriacetam 500 mg/Sodium Chloride 105 ml @ 25 mls/hr Q12HR IV 05/11/17 14:30 05/12/17 08:16 (Tylenol) 650 mg Q4H PRN PO 05/11/17 15:30 05/11/17 16:16 Potassium Chloride/Dextrose/ Sod Cl 1,000 ml @ 60 mls/hr [id number] IV 05/11/17 16:46 05/11/17 21:28 Sodium Chloride 500 ml @ 500 mls/hr BOLUS ONCE IV 05/12/17 09:00 05/12/17 09:59 UNV Allergies Allergies Coded Allergies nitrofurantoin (Verified Allergy, Mild, SWELLS, 05/10/17) buspirone (Verified Allergy, Unknown, 05/10/17) codeine (Verified Adverse Reaction, Mild, VOMIT, 05/10/17) Review of Systems All other ROS: ROS reviewed as documented in chart Exam I&O / VS 05/12/17 05/12/17 05/13/17 15:00 23:00 07:00 # Voids 2 Vital Signs Date Time Temp Pulse Resp B/P (MAP) Pulse Ox O2 Delivery O2 Flow Rate FiO2 05/12/17 08:01 97.4 57 16 84/51 (62) 97 05/12/17 04:15 97.9 64 17 97/49 (65) 97 05/12/17 00:12 97.8 51 17 95/51 (66) 98 05/11/17 21:25 97.6 61 19 88/53 (65) 100 05/11/17 16:30 98.0 65 16 90/55 (67) 97 05/11/17 15:05 59 General: Alert and Oriented, No acute distress Eye: PERRL, Vision unchanged Respiratory: Lungs CTA, Non-labored respirations Cardiology: Normal rate, No murmur Neurologic: Alert, Oriented, Normal sensory, Normal motor, No focal defects, Normal DTR's Psychiatric: Cooperative, Appropriate mood & affect Objective Radiology Results Last 72 hours Impressions Abdomen/Pelvis CT 05/12/17 0000 Signed Impressions: Service Date/Time: Friday, May 12, 2017 16:23 - CONCLUSION: 1. No acute abdominal or pelvic abnormality. Specifically, no definitive CT finding to explain patient's symptoms. 2. Ancillary findings include subcentimeter hypodense lesion in segment 6 of the liver which is too small fully characterize and 2.1 cm cyst in the anterior mid left kidney with additional subcentimeter hypodense cystic lesions that are too small to fully characterize. Ruben López MD Head/Brain Mag Res Venography 05/11/17 0000 Signed Impressions: Service Date/Time: April 18:58 - CONCLUSION: Normal MRV of the brain. Barron Lopez MD Brain MRI 05/11/17 0000 Signed Impressions: Service Date/Time: April 09:58 - CONCLUSION: 1. There is a filling defect on the postcontrast T1-weighted imaging in the right cavernous sinus. Partial sinus thrombosis is not excluded. Contrast enhanced MRV is warranted for further assessment. 2. The brain parenchyma is normal in appearance. No mass lesion is identified. Eron Marshall MD Head CT 05/10/17 1820 Signed Impressions: Service Date/Time: Wednesday, May 10, 2017 18:22 - CONCLUSION: Negative noncontrast head CT. Barron Lopez MD Micro and Labs Laboratory Tests Test 05/12/17 06:32 White Blood Count 5.7 Red Blood Count 4.23 Hemoglobin 12.7 Hematocrit 37.7 Mean Corpuscular Volume 89.0 Mean Corpuscular Hemoglobin 30.1 Mean Corpuscular Hemoglobin Concent 33.8 Red Cell Distribution Width 12.8 Platelet Count 190 Mean Platelet Volume 8.3 Neutrophils (%) (Auto) 40.5 Lymphocytes (%) (Auto) 43.6 Monocytes (%) (Auto) 10.1 Eosinophils (%) (Auto) 4.9 Basophils (%) (Auto) 0.9 Neutrophils # (Auto) 2.3 Lymphocytes # (Auto) 2.5 Monocytes # (Auto) 0.6 Eosinophils # (Auto) 0.3 Basophils # (Auto) 0.0 CBC Comment DIFF FINAL Differential Comment Blood Urea Nitrogen 10 Creatinine 0.84 Random Glucose 88 Calcium Level 8.7 Sodium Level 140 Potassium Level 4.2 Chloride Level 106 Carbon Dioxide Level 31.2 Anion Gap 3 Estimat Glomerular Filtration Rate 71 Devora King MD May 12, 2017 09:14
[2017-05-12] MEDS ORDERED: ePHEDrine/NS 25 MG/5 ML SYR IV ONE (12:00)
[2017-05-12] MEDS ORDERED: LIDOCAINE HCL 1% PF 5 ML AMPULE OTHER ONE (12:00)
[2017-05-12] MEDS ORDERED: PROPOFOL 200 MG/20 ML AMP IV ONE (12:00)
--- NOTE | 2017-05-12 12:07 | PD.PROCEDR ---
GI Procedure PROCEDURE PERFORMED EGD with biopsy Colonoscopy with snare polypectomy, ablation of polyps in the rectum INDICATION FOR PROCEDURE Weight loss, poor appetite PROCEDURE: The procedure, risks and benefits were discussed with Ms. Patricia and informed consent was obtained. Anesthesia sedated her with Diprivan. She was placed in the left lateral decubitus position. EGD: The Pentax videoscope was introduced through the oropharynx and advanced to the second portion of the duodenum under direct visualization. Retroflexion was performed in the stomach random biopsy from the second portion of the duodenum was done to rule out celiac disease. FINDINGS: Normal exam, biopsy from the duodenum to rule out celiac disease Colonoscopy: The Pentax videoscope was introduced through the rectum and advanced to terminal ileum .retroflexion was performed in the rectum. Colonic prep was 1 polyp in the sigmoid removed by snare, 2 polyp in this rectum 4-5 mm each ablated with heat FINDINGS: No abnormality except small polyps, no reason was identified for the weight loss ESTIMATED BLOOD LOSS: None SPECIMENS REMOVED: Duodenum, colon polyp COMPLICATIONS: None IMPRESSION: Small polyps in the colon No obvious reason for the weight loss PLAN: Await biopsy results Start feeding patient Further workup for weight loss need to be done by the primary dictating including possible CT scan of the abdomen and pelvis to rule out malignancy We will follow-up as needed Colonoscopy in 3 years Leopoldo Gallegos MD May 12, 2017 12:07
--- NOTE | 2017-05-12 12:15 | HHI.GIFU ---
Subjective Remarks Patient was doing okay, laying in bed comfortably limited prep, no new complaint Objective Vitals I&O Vital Signs Date Time Temp Pulse Resp B/P (MAP) Pulse Ox O2 Delivery O2 Flow Rate FiO2 05/12/17 08:01 97.4 57 16 84/51 (62) 97 05/12/17 04:15 97.9 64 17 97/49 (65) 97 05/12/17 00:12 97.8 51 17 95/51 (66) 98 05/11/17 21:25 97.6 61 19 88/53 (65) 100 05/11/17 16:30 98.0 65 16 90/55 (67) 97 05/11/17 15:05 59 I/O 05/11/17 05/11/17 05/11/17 05/12/17 05/12/17 05/12/17 07:00 15:00 23:00 07:00 15:00 23:00 Intake Total 480 ml Balance 480 ml Intake Oral 480 ml # Voids 1 1 2 Laboratory Laboratory Tests Test 05/12/17 06:32 White Blood Count 5.7 Red Blood Count 4.23 Hemoglobin 12.7 Hematocrit 37.7 Mean Corpuscular Volume 89.0 Mean Corpuscular Hemoglobin 30.1 Mean Corpuscular Hemoglobin Concent 33.8 Red Cell Distribution Width 12.8 Platelet Count 190 Mean Platelet Volume 8.3 Neutrophils (%) (Auto) 40.5 Lymphocytes (%) (Auto) 43.6 Monocytes (%) (Auto) 10.1 Eosinophils (%) (Auto) 4.9 Basophils (%) (Auto) 0.9 Neutrophils # (Auto) 2.3 Lymphocytes # (Auto) 2.5 Monocytes # (Auto) 0.6 Eosinophils # (Auto) 0.3 Basophils # (Auto) 0.0 CBC Comment DIFF FINAL Differential Comment Blood Urea Nitrogen 10 Creatinine 0.84 Random Glucose 88 Calcium Level 8.7 Sodium Level 140 Potassium Level 4.2 Chloride Level 106 Carbon Dioxide Level 31.2 Anion Gap 3 Estimat Glomerular Filtration Rate 71 Physical Exam HEENT: Pupils round and reactive to light; normocephalic; atraumatic; no jaundice. Throat is clear. NECK: Neck is supple, no JVD, no lymphadenopathy. CHEST: Chest is clear to auscultation and percussion. CARDIAC: Regular rate and rhythm with no murmur gallop or rubs. ABDOMEN: Soft, nondistended, nontender; no hepatosplenomegaly; bowel sounds are present in all four quadrants. EXTREMITIES: No clubbing, cyanosis, or edema. SKIN: Normal; no rash; no jaundice. GAS OPERATOR: No focal deficits; alert and oriented times three. Assessment and Plan Plan Patient was seen and examined, patient had no seizures since yesterday tolerated prep upper endoscopy was normal biopsy was done to rule out celiac disease, colonoscopy showed 3 small polyps removed or ablated, No reason for the patient weight loss on these exams or from her history Further workup is needed by primary care to rule out other sources of weight loss PLAN: Await biopsy results Start feeding patient Further workup for weight loss need to be done by the primary dictating including possible CT scan of the abdomen and pelvis to rule out malignancy We will follow-up as needed Colonoscopy in 3 years Leopoldo Gallegos MD May 12, 2017 12:15
[2017-05-12] MEDS ORDERED: DO NOT ADM ANY ANTICOAGULANT DRUGS PRN (13:00)
--- NOTE | 2017-05-12 13:07 | HHI.PR ---
Subjective Remarks Follow-up for seizure and dysphagia. The patient is seen after EGD today. She wants to try to eat. Denies any further seizure-like activity. No lightheadedness or dizziness. She states her blood sugars have been at times as low as 50 at home. She is concerned about the dysphagia and would like the abdominal CT done if possible. Objective Vitals Vital Signs Date Time Temp Pulse Resp B/P (MAP) Pulse Ox O2 Delivery O2 Flow Rate FiO2 05/12/17 12:45 97.4 62 20 85/50 (62) 97 Room Air 05/12/17 12:30 58 20 78/44 (55) 97 Room Air 05/12/17 12:11 97.4 59 20 81/44 (56) 96 Room Air 05/12/17 08:20 48 05/12/17 08:01 97.4 57 16 84/51 (62) 97 05/12/17 04:15 97.9 64 17 97/49 (65) 97 05/12/17 00:12 97.8 51 17 95/51 (66) 98 05/11/17 21:25 97.6 61 19 88/53 (65) 100 05/11/17 16:30 98.0 65 16 90/55 (67) 97 05/11/17 15:05 59 I/O 05/11/17 05/11/17 05/11/17 05/12/17 05/12/17 05/12/17 07:00 15:00 23:00 07:00 15:00 23:00 Intake Total 480 ml 400 ml Balance 480 ml 400 ml Intake Oral 480 ml Other 400 ml # Voids 1 1 2 Result Diagram: 05/12/17 0632 05/12/17 0632 Imaging Last Impressions Head/Brain Mag Res Venography 05/11/17 0000 Signed Impressions: Service Date/Time: April 18:58 - CONCLUSION: Normal MRV of the brain. Barron Lopez MD Brain MRI 05/11/17 0000 Signed Impressions: Service Date/Time: April 09:58 - CONCLUSION: 1. There is a filling defect on the postcontrast T1-weighted imaging in the right cavernous sinus. Partial sinus thrombosis is not excluded. Contrast enhanced MRV is warranted for further assessment. 2. The brain parenchyma is normal in appearance. No mass lesion is identified. Eron Marshall MD Head CT 05/10/17 1820 Signed Impressions: Service Date/Time: Wednesday, May 10, 2017 18:22 - CONCLUSION: Negative noncontrast head CT. Barron Lopez MD Objective Remarks GENERAL: Well-developed fair-nourished thin patient. In no acute distress. SKIN: Warm and dry. No lesions noted. HEENT: Normocephalic. Pupils equal and round. Mucous membranes pink and moist. CARDIOVASCULAR: Regular rate and rhythm. No murmur appreciated. RESPIRATORY: No accessory muscle use. Clear to auscultation. Breath sounds equal bilaterally. GASTROINTESTINAL: Abdomen soft, non-tender, nondistended. Bowel sounds x4. MUSCULOSKELETAL: No obvious deformities. No clubbing or cyanosis. No edema. NEUROLOGICAL: Awake and alert. No focal neurological deficits. Moves upper and lower extremities spontaneously. Normal speech. PSYCHIATRIC: Appropriate mood and affect; insight and judgment normal. A/P Assessment and Plan 56-year-old female with past medical history of diabetes mellitus who presented after a witnessed seizure Seizure: Reviewed: Brain MRI shows normal brain parenchyma, filling defect in the right cavernous sinus, partial sinus thrombosis if not excluded with MRV recommended. Brain MRV was unremarkable. Blood glucoses are borderline low. Drug screen and EtOH level negative. EEG normal with no evidence for focal or diffuse abnormality. -Neurology consulted, recommended no indication for antiseizure medications, cleared for discharge -Seizure precautions discussed with the patient including no driving -IV Ativan as needed Dysphasia/weight loss: -GI consulted, performed EGD and colonoscopy which only showed small polyps in the colon and no obvious reason for the weight loss -GI recommended advancing diet and further workup including possible CT scan of the abdomen and pelvis -Will attempt to obtain CT abdomen and pelvis while the patient is here, but did explain to her that this will need to be followed up with her primary care physician Diabetes mellitus: With borderline hypoglycemia. Probably overcontrolled with hemoglobin A1c 5.4. -Discontinue home oral hypoglycemics -DC IVF and monitor oral intake -Monitor Accu-Cheks and cover with SSI if needed DVT prophylaxis: Lovenox Discharge Planning Cleared by neurology for discharge. GI recommended advancing diet and will follow-up if needed. If patient is able to tolerate diet, likely discharge planning later today. We'll attempt to obtain CT abdomen and pelvis for dysphasia workup, but the patient may need to follow-up with PCP for this as outpatient. Tobias Philip May 12, 2017 13:07
[2017-05-12] MEDS ORDERED: DIATRIZOATE MEGLUM/DIATRIZOATE SOD 9 ML CUP PO ONE (15:00)
--- NOTE | 2017-05-12 16:48 | RADRPT ---
EXAM DATE/TIME: 05/12/2017 16:23 [facility] COMPARISON: No previous studies available for comparison. INDICATIONS : Dysphagia, weight loss. IV CONTRAST: 86 cc Omnipaque 350 (iohexol) IV ORAL CONTRAST: Prescribed oral contrast ingested. RADIATION DOSE: 9.96 CTDIvol (mGy) MEDICAL HISTORY : Diabetes mellitus type 1. SURGICAL HISTORY : Tubal ligation. ENCOUNTER: Initial ACUITY: 1 day PAIN SCALE: 5/10 LOCATION: lower quadrant TECHNIQUE: Volumetric scanning of the abdomen and pelvis was performed. Using automated exposure control and ad justment of the mA and/or kV according to patient size, radiation dose was kept as low as reasonably achievable to obtain optimal diagnostic quality images. DICOM format image data is available electro nically for review and comparison. FINDINGS: LOWER LUNGS: The visualized lower lungs are clear. LIVER: Subcentimeter hypodensity in segment 6 of the liver. Liver is otherwise grossly unremarkable. There i s visualization of the hepatic falciform artery anastomosing with the intramammary artery. SPLEEN: Normal size without lesion. PANCREAS: Within normal limits. KIDNEYS: Kidneys demonstrate symmetrical enhancement and size without evidence for hydronephrosis or radiopaqu e renal calculi. 2.1 x 1.8 cm cyst in the anterior mid left kidney. Additional subcentimeter hypodens e cystic lesions in the superior pole of the left kidney are too small to fully characterize. ADRENAL GLANDS: Within normal limits. VASCULAR: There is no aortic aneurysm. BOWEL/MESENTERY: The stomach, small bowel, and colon demonstrate no acute abnormality. There is no free intraperitone al air or fluid. ABDOMINAL WALL: Within normal limits. RETROPERITONEUM: There is no lymphadenopathy. BLADDER: Bladder distended but otherwise unremarkable by CT. REPRODUCTIVE: Within normal limits. INGUINAL: There is no lymphadenopathy or hernia. MUSCULOSKELETAL: Within normal limits for patient age. CONCLUSION: 1. No acute abdominal or pelvic abnormality. Specifically, no definitive CT finding to explain patien t's symptoms. 2. Ancillary findings include subcentimeter hypodense lesion in segment 6 of the liver which is too s mall fully characterize and 2.1 cm cyst in the anterior mid left kidney with additional subcentimeter hypodense cystic lesions that are too small to fully characterize. Ruben López MD on May 12, 2017 at 16:36 Board Certified Radiologist. This report was verified electronically.
== END 2017-05-12 18:28 | disposition home or self-care (01) ==
LOC: NEPC 17:56 → NEDA 20:47 → NEPHCDU 22:25
PROVIDERS: ADMIT Hospitalist; ATTEND Hospitalist
DX: D12.5 Benign neoplasm of sigmoid colon (principal); E11.649 Type 2 diabetes mellitus with hypoglycemia without coma; K62.1 Rectal polyp; R47.02 Dysphasia; R13.10 Dysphagia, unspecified; D64.9 Anemia, unspecified; M54.9 Dorsalgia, unspecified; G89.29 Other chronic pain; J44.9 Chronic obstructive pulmonary disease, unspecified; F17.210 Nicotine dependence, cigarettes, uncomplicated; Z82.0 Family history of epilepsy and other diseases of the nervous system; Z79.82 Long term (current) use of aspirin
CPT/HCPCS: 00810; 43239; 45385; 45388; 70450; 70546; 70553; 74177; 80048; 80053; 80307; 81001; 82948; 83036; 85025; 88305; 93005; 95819; 96365; 96367; 96368; 96372; 96375; 99285; A9579; G0378; J1815; J1953; J2060; J3480; J7040; Q9963; Q9967

== ENCOUNTER 2017-08-28 13:08 | Emergency (ER) | payer MEDICAID ==
[~2017-08-28] VITALS: Ht 170.2 cm; Wt 47.3 kg
[2017-08-28 13:09] VITALS: BP 144/71; PULSE 106; RESP 16; TEMP 98.3; O2SAT 97
[2017-08-28] MEDS ORDERED: SERO25TA PO (13:49)
[2017-08-28] MEDS ORDERED: FLUO-1 PO (13:49)
--- NOTE | 2017-08-28 14:18 | PD ---
HPI Chief Complaint: Cold / Flu Symptoms Time Seen by Provider: 13:59 Travel History International Travel<30 days: No Contact w/Intl Traveler<30days: No Traveled to known affect area: No History of Present Illness HPI This is a 57-year-old female who presents for evaluation of cough and congestion. Symptoms started 1 week ago. The cough is dry, unrelieved with the use of DayQuil and TheraFlu. She denies any fevers, chills. She endorses an associated headache. She endorses tobacco product use. She denies recent travel, rash. Denies history of COPD or asthma. No other complaints at this time. PFSH Past Medical History Blood Disorders: No Anxiety: Yes Depression: Yes Cancer: No Cardiovascular Problems: No Diabetes: Yes (T2DM) Patient Takes Glucophage: No Diminished Hearing: No Endocrine: Yes Genitourinary: No Immune Disorder: No Musculoskeletal: No Neurologic: No Psychiatric: Yes Reproductive: No Respiratory: No Tetanus Vaccination: < 5 Years ?: Not Menopausal: Yes Tubal Ligation: Yes Past Surgical History Abdominal Surgery: Yes Other Surgery: Yes (SCREWS IN ANKLE ) Social History Alcohol Use: No Tobacco Use: Yes Substance Use: No Allergies-Medications (Allergen,Severity, Reaction): Coded Allergies: nitrofurantoin (Verified Allergy, Mild, SWELLS, 08/28/17) buspirone (Verified Allergy, Unknown, 08/28/17) codeine (Verified Adverse Reaction, Mild, VOMIT, 08/28/17) Reported Meds & Prescriptions Reported Meds & Active Scripts Active Tessalon Perles (Benzonatate) 100 Mg Cap 200 Mg PO TID PRN Reported Seroquel (Quetiapine Fumarate) 25 Mg Tab 25 Mg PO HS Prozac (Fluoxetine HCl) 10 Mg Cap 10 Mg PO DAILY Review of Systems Except as stated in HPI: all other systems reviewed are Neg Physical Exam Narrative GENERAL: Well-developed well-nourished female in no acute distress SKIN: Warm and dry. HEAD: Atraumatic. Normocephalic. EYES: Pupils equal and round. No scleral icterus. No injection or drainage. ENT: No nasal bleeding or discharge. Mucous membranes pink and moist. NECK: Trachea midline. No JVD. CARDIOVASCULAR: Regular rate and rhythm. No murmur appreciated. RESPIRATORY: No accessory muscle use. Clear to auscultation. Breath sounds equal bilaterally. No crackles no wheezing or rhonchi GASTROINTESTINAL: Abdomen soft, non-tender, nondistended. Hepatic and splenic margins not palpable. MUSCULOSKELETAL: No obvious deformities. No clubbing. No cyanosis. No edema. NEUROLOGICAL: Awake and alert. No obvious cranial nerve deficits. Motor grossly within normal limits. Normal speech. PSYCHIATRIC: Appropriate mood and affect; insight and judgment normal. Data Data Last Documented VS Vital Signs Date Time Temp Pulse Resp B/P (MAP) Pulse Ox O2 Delivery O2 Flow Rate FiO2 08/28/17 13:09 98.3 106 16 144/71 (95) 97 Orders Orders Chest, Pa & Lat (08/28/17 ) Ed Discharge Order (08/28/17 14:42) [facility] Medical Decision Making Medical Screen Exam Complete: Yes Emergency Medical Condition: Yes Medical Record Reviewed: Yes Differential Diagnosis Bronchitis, pneumonia, influenza, reactive airway disease, sinusitis Narrative Course 57-year-old female with one-week history of dry cough and nasal congestion. Physical examination is reassuring. Her lungs are clear to auscultation. ENT examination is normal. A chest x-ray which was ordered by the triage provider reveals no acute abnormalities. She appears to have a viral bronchitis. She is stable for discharged with Tessalon as a cough suppressant. Diagnosis Primary Impression: Bronchitis Additional Instructions: Avoid tobacco products. Medication as prescribed. Stay well hydrated well- nourished. Follow-up with primary care physician as needed and return for any acutely new or worsening symptoms. Med/Other Pt SpecificInfo: Prescription(s) given Scripts Benzonatate (Tessalon Perles) 100 Mg Cap 200 MG PO TID Y for COUGH, #20 CAP 0 Refills Prov: Ailin Boyle MD 08/28/17 Disposition: 01 DISCHARGE HOME Condition: Stable Valerio Agarwal Aug 28, 2017 14:18
--- NOTE | 2017-08-28 14:30 | RADRPT ---
EXAM DATE/TIME: 08/28/2017 13:34 [facility] COMPARISON: CHEST SINGLE AP, June 24, 2014, 19:45. INDICATIONS : Cough and congestion. MEDICAL HISTORY : Diabetes mellitus type II. SURGICAL HISTORY : None. ENCOUNTER: Initial ACUITY: 1 week PAIN SCORE: 0/10 LOCATION: Bilateral chest FINDINGS: There is mild S-shaped scoliosis of the thoracic spine. Hyperaeration is appreciated with bilateral a pical pleural-parenchymal scarring unchanged. CONCLUSION: Stable chest with no acute cardiopulmonary process Karthik Patricia MD on August 28, 2017 at 14:26 Board Certified Radiologist. This report was verified electronically.
[2017-08-28] MEDS ORDERED: BENZ100 PO (14:42)
== END 2017-08-28 15:00 | disposition home or self-care (01) ==
LOC: NEPA 13:08
DX: J40 Bronchitis, not specified as acute or chronic (principal); E11.9 Type 2 diabetes mellitus without complications; Z72.0 Tobacco use; Z88.5 Allergy status to narcotic agent
CPT/HCPCS: 71046; 99283